=== PATIENT | female | born 1985 | race Hispanic/Latino ===

== ENCOUNTER 2019-03-27 06:40 | Day surgery (SDC) | payer BC ==
[2019-03-26 16:34] VITALS: BP 115/69
[2019-03-26 16:46] LABS: BASOPHILS % (AUTO) 0.9 % (0.0-5.0); EOSINOPHILS % (AUTO) 0.9 % (0.0-8.0); HEMATOCRIT 41.7 % (36-48); LYMPHOCYTES % (AUTO) 30.8 % (21.0-51.0); MEAN CORPUSCULAR HEMOGLOBIN 31.1 pg (27.0-33.0); MEAN CORPUSCULAR HGB CONC 33.3 g/dL (32.0-36.0); MEAN CORPUSCULAR VOLUME 93.3 fL (79-99); MONOCYTES % (AUTO) 9.3 % (3.0-13.0); NEUTROPHILS % (AUTO) 58.1 % (40.0-77.0); PLATELET COUNT (AUTO) 282 K/uL (130-400); RED BLOOD CELL COUNT(AUTO) 4.47 MIL/uL (4.00-5.50); RED CELL DISTRIBUTION WIDTH 12.1 % (11.0-15.5); WHITE BLOOD COUNT (AUTO) 6.9 K/uL (4.8-10.8)
[~2019-03-27] VITALS: Ht 162.6 cm; Wt 79.8 kg
[2019-03-27] VITALS (12 sets, daily range): BP systolic 81–114; BP diastolic 49–77
[2019-03-27] MEDS: CEFAZOLIN SODIUM 1 GM VIAL IVP SCH ×2 (06:00→09:45)
[2019-03-27] MEDS: CALDOLOR 800MG+NS 250ML 250 ML IV SCH ×2 (06:00→09:40)
[~2019-03-27 06:40] MED LIST: ASPI-555 PO; LACTATED RINGERS 1000ML 1,000 ML IV SCH; LORA10TA7 PO; PRENATAL VITAMIN PO
[2019-03-27] MEDS ORDERED: MIDAZOLAM HCL 1 MG/ML 2ML VIAL ONE (09:29)
[2019-03-27] MEDS ORDERED: LIDOCAINE HCL MPF 1% 5ML VIAL ONE (09:29)
[2019-03-27] MEDS ORDERED: FENTANYL CITRATE PF 50 MCG/1 ML 2ML VIAL ONE (09:29)
[2019-03-27] MEDS ORDERED: PROPOFOL 10 MG/ML 20ML VIAL IV ONE (09:29)
[2019-03-27] MEDS ORDERED: DEXAMETHASONE SOD PHOSPHATE 10MG/ML 1ML VIAL ONE (10:07)
[2019-03-27] MEDS ORDERED: ONDANSETRON HCL 4 MG/2 ML VIAL ONE (10:07)
[2019-03-27] MEDS ORDERED: KETOROLAC TROMETHAMINE 30MG/ML ONE (10:32)
--- NOTE | 2019-03-27 12:13 | NUR ---
D/C PT LEFT VIA WHEEL CHAIR IN PVT CAR. PT. HAS RX FOR TYLENOL AND IBUPROFEN GIVE BY YESTERDAY AND WILL FILL RX TODAY.
== END 2019-03-27 11:54 | disposition home or self-care (01) ==
LOC: DAH 06:40
PROVIDERS: ATTEND Obstetrics & Gynecology
DX: O03.9 Complete or unspecified spontaneous abortion without complication (principal); Z98.890 Other specified postprocedural states; K21.9 Gastro-esophageal reflux disease without esophagitis
CPT/HCPCS: 36415; 58558; 84703; 85025; 86850; 86900; 86901; 88305; A4351; A4510 ×2; J0690; J1100; J1741; J1885; J2250; J2405; J2704; J3010; J3490; J7030; J7120

== ENCOUNTER 2020-08-17 13:30 | Emergency (ER) | payer BC ==
[~2020-08-17 13:30] MED LIST changes: -ASPI-555 PO; +ASPI-556 PO; -LACTATED RINGERS 1000ML 1,000 ML IV SCH
[2020-08-17 15:07] LABS: APPEARANCE,URINE Clear (CLEAR); BILIRUBIN,URINE Negative (NEGATIVE); COLOR,URINE Yellow (YELLOW); GLUCOSE, URINE (UA) Negative (NEGATIVE); KETONES,URINE Negative (NEGATIVE); LEUKOCYTE ESTERASE ,URINE Negative (NEGATIVE); NITRATE,URINE Negative (NEGATIVE); OCCULT BLOOD,URINE Negative (NEGATIVE); PROTEIN,URINE Negative (NEGATIVE)
== END 2020-08-17 16:38 | disposition home or self-care (01) ==
LOC: EDH 13:30
DX: O34.12 Maternal care for benign tumor of corpus uteri, second trimester (principal); O99.612 Diseases of the digestive system complicating pregnancy, second trimester; K59.00 Constipation, unspecified; D25.9 Leiomyoma of uterus, unspecified; Z3A.15 15 weeks gestation of pregnancy; Z90.49 Acquired absence of other specified parts of digestive tract
CPT/HCPCS: 76805; 81003; 82270; 96360; 96361

== ENCOUNTER 2023-04-05 12:06 | Emergency (ER) | payer BC ==
[~2023-04-05] VITALS: Ht 162.6 cm; Wt 90.7 kg
[2023-04-05 12:06] VITALS: BP 153/90
[2023-04-05 13:11] LABS: BASOPHILS % (AUTO) 0.7 % (0.0-5.0); EOSINOPHILS % (AUTO) 0.7 % (0.0-8.0); HEMATOCRIT 40.2 % (36-48); LYMPHOCYTES % (AUTO) 27.3 % (21.0-51.0); MEAN CORPUSCULAR HEMOGLOBIN 31.1 pg (27.0-33.0); MEAN CORPUSCULAR HGB CONC 34.1 g/dL (32.0-36.0); MEAN CORPUSCULAR VOLUME 91.2 fL (79-99); MONOCYTES % (AUTO) 6.7 % (3.0-13.0); NEUTROPHILS % (AUTO) 64.4 % (40.0-77.0); PLATELET COUNT (AUTO) 249 K/uL (130-400); RED BLOOD CELL COUNT(AUTO) 4.41 MIL/uL (4.00-5.50); RED CELL DISTRIBUTION WIDTH 12.2 % (11.0-15.5); WHITE BLOOD COUNT (AUTO) 6.1 K/uL (4.8-10.8)
[2023-04-05 13:25] LABS: APPEARANCE,URINE CLEAR (CLEAR); BILIRUBIN,URINE NEGATIVE (NEGATIVE); COLOR,URINE YELLOW (YELLOW); GLUCOSE, URINE (UA) NEGATIVE (NEGATIVE); KETONES,URINE NEGATIVE (NEGATIVE); LEUKOCYTE ESTERASE ,URINE NEGATIVE Leu/uL (NEGATIVE); NITRATE,URINE NEGATIVE (NEGATIVE); OCCULT BLOOD,URINE MODERATE (NEGATIVE); PROTEIN,URINE NEGATIVE (NEGATIVE); UROBILINOGEN,URINE 0.2 mg/dL (0.2-1.0)
[2023-04-05 13:26] LABS: INR 0.94 (0.85-1.15); PROTHROMBIN TIME 10.3 SEC (9.6-11.6)
[2023-04-05 13:27] LABS: PARTIAL THROMBOPLASTIN TIME 28.8 SEC (26.3-35.5)
[2023-04-05 13:29] LABS: CREATININE 0.8 mg/dL (0.5-1.5); POTASSIUM 3.8 mmol/L (3.5-5.1)
[2023-04-05 13:31] LABS: BACTERIA,URINE RARE /HPF (None Seen); MUCUS,URINE RARE LPF (None Seen); SQUAMOUS EPITHELIAL CELL,UR FEW /HPF (0-2); WBC,URINE 0-1 /HPF (0-1)
== END 2023-04-05 16:43 | disposition home or self-care (01) ==
LOC: EDH 12:06
DX: O03.9 Complete or unspecified spontaneous abortion without complication (principal); Z90.49 Acquired absence of other specified parts of digestive tract; Z98.890 Other specified postprocedural states; Z79.899 Other long term (current) drug therapy; Z88.8 Allergy status to other drugs, medicaments and biological substances; Z3A.01 Less than 8 weeks gestation of pregnancy
CPT/HCPCS: 36415; 76817; 80053; 81001; 83605; 84702; 85025; 85610; 85730; 86850; 86900; 86901; 87040

== ENCOUNTER 2024-09-01 03:43 | Observation (INO) | payer BC ==
[~2024-09-01] VITALS: Ht 162.6 cm; Wt 94.3 kg
[2024-09-01 03:45] VITALS: BP 124/83; PULSE 98; RESP 20; TEMP 97.9
[2024-09-01 04:24] LABS: APPEARANCE,URINE CLEAR (CLEAR); BILIRUBIN,URINE NEGATIVE (NEGATIVE); COLOR,URINE COLORLESS (YELLOW); GLUCOSE, URINE (UA) NEGATIVE (NEGATIVE); KETONES,URINE NEGATIVE (NEGATIVE); LEUKOCYTE ESTERASE ,URINE NEGATIVE Leu/uL (NEGATIVE); NITRATE,URINE NEGATIVE (NEGATIVE); OCCULT BLOOD,URINE SMALL (NEGATIVE); PROTEIN,URINE NEGATIVE (NEGATIVE); UROBILINOGEN,URINE 0.2 mg/dL (0.2-1.0)
[2024-09-01 04:31] LABS: AMPHET/METH SCREEN,URINE NEGATIVE (NEGATIVE); BARBITURATE SCREEN, URINE NEGATIVE (NEGATIVE); BENZODIAZEPINES SCREEN,URINE NEGATIVE (NEGATIVE); CANNABINOID SCREEN,URINE NEGATIVE (NEGATIVE); COCAINE SCREEN,URINE NEGATIVE (NEGATIVE); OPIATE SCREEN,URINE NEGATIVE (NEGATIVE); PHENCYCLIDINE SCREEN,URINE NEGATIVE (NEGATIVE)
[2024-09-01 04:33] LABS: ADD UA MICROSCOPIC YES
[2024-09-01 04:34] LABS: BACTERIA,URINE RARE /HPF (None Seen); RBC,URINE 0-1 /HPF (0-1); SQUAMOUS EPITHELIAL CELL,UR RARE /HPF (0-2); WBC,URINE 0-1 /HPF (0-1)
--- NOTE | 2024-09-01 09:52 | HMCIMG ---
US OB >14 WEEKS HISTORY: Vaginal bleeding COMPARISON: April 05, 2023 TECHNIQUE: ultrasound study was performed. FINDINGS: There is single intrauterine gestation with estimated gestational age of 23 weeks. heart rate is 158 beats per minute. The fetus is in transverse lie. weight is estimated to be 560 grams. Amniotic fluid volume is 16.89 centimeter. The placenta is located anteriorly. No evidence of placenta previa is seen. There is no evidence of nuchal cord. The study is limited due to increased movement. There may be a fibroid near the cervix measuring 5.9 x 4.9 x 6.2 cm also seen on previous study of April 05, 2023 IMPRESSION: 1. There is single intrauterine gestation with estimated gestational age of 23 weeks. heart rate is 158 beats per minute.
== END 2024-09-01 06:30 | disposition home or self-care (01) ==
LOC: EDH 03:43 → LDH 03:44
PROVIDERS: ADMIT Obstetrics & Gynecology; ATTEND Obstetrics & Gynecology
DX: O26.852 Spotting complicating pregnancy, second trimester (principal); O46.92 Antepartum hemorrhage, unspecified, second trimester; Z3A.22 22 weeks gestation of pregnancy; Z79.899 Other long term (current) drug therapy
CPT/HCPCS: 59025; 80305; 81001; 76805; G0378 ×3; G0379